=== PATIENT | female | born 1980 | race Caucasian/White ===

== ENCOUNTER 2017-05-22 11:41 | Inpatient (IN) | payer MEDICAID ==
[~2017-05-22] VITALS: Ht 162.6 cm; Wt 67.1 kg
[2017-05-22] MEDS ORDERED: OXYTOCIN 30 UNITS/LACT RINGERS 500 ML IV PRN (12:53)
[2017-05-22] MEDS ORDERED: OXYTOCIN 30 UNITS/LACT RINGERS 500 ML IV ONE (12:53)
[2017-05-22] MEDS ORDERED: RINGERS SOLUTION,LACTATED 1,000 ML IV PRN (12:53)
[2017-05-22] MEDS ORDERED: PREN-155 PO (13:00)
[2017-05-22] MEDS ORDERED: METOCLOPRAMIDE HCL 5 MG/ML 2 ML VIAL IVP PRN (13:00)
[2017-05-22] MEDS ORDERED: CITRIC ACID/SODIUM CITRATE 30 ML SOLUTION UDCUP PO PRN (13:00)
[2017-05-22] MEDS ORDERED: LIDOCAINE HCL/PF 1% 30 ML VIAL INJ PRN (13:00)
[2017-05-22 13:01] VITALS: BP 106/76
[2017-05-22 13:39] LABS: BASOPHILS % (AUTO) 0.2 % (0.0-2.0); EOSINOPHILS % (AUTO) 0.2 % (1.0-6.0); HEMOGLOBIN 11.7 g/dL (12.0-16.0); LYMPHOCYTES # (AUTO) 1.8 K/uL (1.0-4.8); MEAN CORPUSCULAR HEMOGLOBIN 33.5 pg (26.0-34.0); MEAN CORPUSCULAR HGB CONC 34.4 G/dL (31.0-37.0); MEAN CORPUSCULAR VOLUME 97 fL (80-100); MONOCYTES # (AUTO) 0.4 K/uL (0.1-1.0); MONOCYTES % (AUTO) 4.1 % (2.0-9.0); NEUTROPHILS # (AUTO) 6.5 K/uL (1.8-7.7); NEUTROPHILS % (AUTO) 74.5 % (40.0-70.0); RED BLOOD CELL COUNT(AUTO) 3.49 MIL/uL (4.00-5.20); WHITE BLOOD COUNT (AUTO) 8.8 K/uL (4.5-11.0)
[2017-05-22] MEDS: RINGERS SOLUTION,LACTATED 1,000 ML IV SCH ×3 (13:39→21:41)
[2017-05-22] MEDS ORDERED: FentaNYL/BUPIV 0.125%/NS/PF 200 ML ED ONE (15:12)
[2017-05-22] MEDS ORDERED: LIDOCAINE HCL/PF 2% 5 ML VIAL ONE (15:14)
[2017-05-22] MEDS ORDERED: FentaNYL/BUPIV 0.125%/NS/PF 200 ML ED PRN (15:49)
[2017-05-22] MEDS ORDERED: DiphenhydrAMINE HCL 50 MG/ML VIAL IVP PRN (16:00)
[2017-05-22] MEDS ORDERED: ONDANSETRON HCL 4 MG/2 ML VIAL IVP PRN (16:00)
[2017-05-22] MEDS ORDERED: OXYGEN THERAPY IH SCH (20:00)
[2017-05-23] MEDS ORDERED: IBUPROFEN 600 MG TABLET PO PRN (00:45)
[2017-05-23] MEDS ORDERED: LANOLIN 7 GM OINTMENT TP PRN (00:45)
[2017-05-23] MEDS ORDERED: SENNA/DOCUSATE SODIUM 187-50 MG TABLET PO PRN (00:45)
[2017-05-23] MEDS ORDERED: ACETAMINOPHEN/CODEINE 300-30 MG TABLET PO PRN (00:45)
[2017-05-23] MEDS ORDERED: BENZOCAINE 20%/MENTHOL 56 GM SPRAY CANISTER TP PRN (00:45)
[2017-05-23] MEDS ORDERED: GLYCERIN/WITCH HAZEL LEAF 40 PADS JAR TP PRN (00:45)
[2017-05-23] MEDS: MAGNESIUM HYDROXIDE SUSPENSION 30 ML UDCUP PO PRN (22:08)
[2017-05-24 05:50] LABS: BASOPHILS # (AUTO) 0.02 K/uL (0.00-0.20); BASOPHILS % (AUTO) 0.2 % (0.0-2.0); EOSINOPHILS # (AUTO) 0.06 K/uL (0.00-0.70); EOSINOPHILS % (AUTO) 0.55 % (1.0-6.0); HEMATOCRIT 28.9 % (36-46); HEMOGLOBIN 9.8 g/dL (12.0-16.0); LYMPHOCYTES # (AUTO) 3.4 K/uL (1.0-4.8); LYMPHOCYTES % (AUTO) 31.7 % (22.0-44.0); MEAN CORPUSCULAR HEMOGLOBIN 33.1 pg (26.0-34.0); MEAN CORPUSCULAR HGB CONC 33.9 G/dL (31.0-37.0); MEAN CORPUSCULAR VOLUME 98 fL (80-100); MONOCYTES # (AUTO) 0.5 K/uL (0.1-1.0); MONOCYTES % (AUTO) 4.5 % (2.0-9.0); NEUTROPHILS # (AUTO) 6.8 K/uL (1.8-7.7); NEUTROPHILS % (AUTO) 63.1 % (40.0-70.0); RED BLOOD CELL COUNT(AUTO) 2.95 MIL/uL (4.00-5.20); RED CELL DISTRIBUTION WIDTH 13.9 % (11.5-14.5); WHITE BLOOD COUNT (AUTO) 10.7 K/uL (4.5-11.0)
[2017-05-24] MEDS ORDERED: IBUP-2071 PO ×2 (07:47→07:50)
[2017-05-24] MEDS ORDERED: DSS100 PO (07:51)
[2017-05-24] MEDS: MAGNESIUM HYDROXIDE SUSPENSION 30 ML UDCUP PO PRN (09:06)
== END 2017-05-24 12:35 | disposition home or self-care (01) | DRG 560 ==
LOC: OBSVTOIN 11:44 → 4S 11:44
PROVIDERS: ADMIT Obstetrics & Gynecology; ATTEND Obstetrics & Gynecology
PROC: 10E0XZZ Delivery of Products of Conception, External Approach (ICD-10-PCS; principal; 2017-05-22)
PROC: 0KQM0ZZ Repair Perineum Muscle, Open Approach (ICD-10-PCS; 2017-05-22)
PROC: 3E0S3CZ (ICD-10-PCS; 2017-05-22)
PROC: 00HU33Z Insertion of Infusion Device into Spinal Canal, Percutaneous Approach (ICD-10-PCS; 2017-05-22)
DX: O69.81X0 Labor and delivery complicated by cord around neck, without compression, not applicable or unspecified (principal); O41.03X0 Oligohydramnios, third trimester, not applicable or unspecified; Z37.0 Single live birth; O70.1 Second degree perineal laceration during delivery; Z3A.40 40 weeks gestation of pregnancy
CPT/HCPCS: 86850; 86900; 86901; J2590; J3490; J7120